=== PATIENT | male | born 1960 | race Caucasian/White ===

== ENCOUNTER → 2017-02-22 | Outpatient (CLI) | payer OTHER | LOC: BMCIMAGING 14:38 | PROVIDERS: ATTEND Podiatrist Foot & Ankle Surgery | DX: M25.871 Other specified joint disorders, right ankle and foot (principal) ==

== ENCOUNTER 2017-12-01 14:27 | Emergency (ER) | payer OTHER ==
[2017-12-01 14:35] VITALS: TEMP 97.9
[2017-12-01 14:43] VITALS: O2SAT 97
--- NOTE | 2017-12-01 14:43 | EDPHY ---
H & P Stated Complaint: HTN and sinus headache , sent from Time Seen by Provider: 12/01/17 14:41 HPI/ROS: HPI: This is the 57-year-old male who presents with Chief Complaint: hypertension Location: Heart Quality: High blood pressure Duration: 3 days Signs and Symptoms: No chest pain, no palpitations, no shortness of breath, no hemoptysis, no lower extremity edema, no fever, no cough Timing: Sudden, intermittent episodes Severity: Moderate Context: Patient has a history of hyperlipidemia on Crestor, AndroGel and followed by Cardiology outpatient HD strong family cardiac history with negative nuclear stress test in January of this year presents with 3 days of head pressure, sinus congestion, dizziness, room spinning when he moves his head in a certain position along with transiently elevated blood pressure readings. He uses a wrist cuff at home to take blood pressure readings throughout the day for the last 3 days. His highest reading was 150/78. Today he went to [facility] and they got a reading of a systolic 180/90 and sent the patient to the emergency room for further evaluation. Patient reports that he limits the amount of caffeine that he uses but has been taking Sudafed for his nasal congestion for the last few days. Does not have a diagnosis of hypertension. Exercises regularly. Nonsmoker. Patient adamantly denies chest pain/shortness of breath/lower extremity edema/recent long distance travel but only came at the urging of of his and the [facility]. reports that he has had increased insomnia and just not feeling well the last 3 days. He runs approximately 20 miles per week. Modifying Factors: None Comment: Chart review shows that January 2016 carotid ultrasound was unremarkable for stenosis. ROS: see HPI Constitutional: No fever, no chills, no weight loss Eyes: No blurred vision Respiratory: No shortness of breath, no cough Cardiovascular: No chest pain Gastrointestinal: No nausea, no vomiting, no diarrhea Genitourinary: No dysuria Extremities: No myalgias Neurologic: No weakness, no numbness Skin: No rashes Hematologic: No bruising, no bleeding MEDICAL/SURGICAL/SOCIAL HISTORY: Medical history: hyperlipidemia, inner ear herpes, diverticulitis Surgical history: foot surgery Social history: . CONSTITUTIONAL: Extremely anxious, physically fit, polite, adult white male, awake and alert, no obvious distress HEENT: Atraumatic and normocephalic, PERRL, EOMI. TM show effusion left greater than right. Tympanic membranes clear. Oropharynx clear, no exudate and moist pink mucosa. Airway patent. No lymphadenopathy. No meningismus. Cardiovascular: Normal S1/S2, regular rate, regular rhythm, without murmur rub or gallop. PULMONARY/CHEST: Symmetrical and nontender. Clear to auscultation bilaterally. Good air movement. No accessory muscle usage. ABDOMEN: Soft, nondistended, nontender, no rebound, no guarding, no peritoneal signs, no masses or organomegaly. No CVAT. EXTREMITIES: 2/2 pulses, strength 5/5, no deformities, no clubbing, no cyanosis or edema. NEUROLOGICAL: no focal neuro deficits. GCS 15. SKIN: Warm and dry, no erythema. no rash. Good capillary refill. Source: Patient, Family () Exam Limitations: No limitations - Personal History Current Tetanus/Diphtheria Vaccine: Yes Current Tetanus Diphtheria and Acellular Pertussis (TDAP): Yes Tetanus Vaccine Date: < 10 years - Medical/Surgical History Hx Asthma: No Hx Chronic Respiratory Disease: No Hx Diabetes: No Hx Cardiac Disease: No Hx Renal Disease: No Hx Cirrhosis: No Hx Alcoholism: No Hx HIV/AIDS: No Hx Splenectomy or Spleen Trauma: No Other PMH: hyperlipedemia. inner ear herpes. divirticulitis. foot surgery - Social History Smoking Status: Never smoked Constitutional: Initial Vital Signs Temperature (C) 36.6 C 12/01/17 14:30 Heart Rate 67 12/01/17 14:30 Respiratory Rate 20 12/01/17 14:30 Blood Pressure 187/120 H 12/01/17 14:30 O2 Sat (%) 100 12/01/17 14:30 O2 Delivery Mode Room Air Allergies/Adverse Reactions: No Known Allergies Allergy (Verified 12/01/17 14:29) Home Medications: Medication Instructions Recorded TESTIM 09/17/10 Budesonide [Rhinocort Allergy] 1 spray NS DAILY #1 spray.pump 12/01/17 Crestor 12/01/17 Fexofenadine HCl [Mary Allergy] 180 mg PO DAILY #12 tablet 12/01/17 LORazepam [Ativan (*)] 1 mg PO Q6 PRN #10 tab 12/01/17 Proair Hfa 12/01/17 Medical Decision Making - Diagnostics EKG Interpretation: 12 lead EKG: Indication: Hypertension Rhythm: Normal sinus rhythm, rate 64 beats per minute [place]: Normal Intervals: Normal QRS: Normal ST segments: Nonspecific changes T-waves: Normal INTERPRETATION: No acute ischemic changes The 12 lead EKG was interpreted by myself and with attending. ED Course/Re-evaluation: EKG, labs, IV medications, oral medications, telemetry ordered Orthostatics unremarkable Given aspirin and IV Ativan 1 mg upon arrival. No prior history of hypertension; suspect transient elevation secondary to anxiety and Sudafed use. EKG shows no acute ischemic changes 1515: Blood pressure noted on telemetry 138/87 No signs of pulmonary embolism/acute coronary syndrome/CVA/congestive heart failure/otitis media/sinusitis This patient was seen under the supervision of my primary supervising physician. I evaluated care for this patient independently. Discussed this patient with Dr. Canales who did not see the patient. Patient's presentation, labs /imaging, treatment and plan of care were discussed with secondary supervising physician. Differential Diagnosis: Chest pain including but not limited to myocardial ischemia, pulmonary embolus, chest wall pain, pleural inflammation and pulmonary infectious causes. Dizziness including but not limited to peripheral and central causes of vertigo , orthostatic causes including dehydration, and blood loss. - Data Points Laboratory Results: Laboratory Results 12/01/17 15:10 12/01/17 15:10 12/01/17 12/01/17 12/01/17 15:10 15:10 15:10 WBC 9.34 10^3/uL 10^3/uL (3.80-9.50) RBC 5.19 10^6/uL 10^6/uL (4.40-6.38) Hgb 16.1 g/dL g/dL (13.7-17.5) Hct 45.5 % % (40.0-51.0) MCV 87.7 fL fL (81.5-99.8) MCH 31.0 pg pg (27.9-34.1) MCHC 35.4 g/dL g/dL (32.4-36.7) RDW 12.8 % % (11.5-15.2) Plt Count 209 10^3/uL 10^3/uL (150-400) MPV 11.0 fL fL (8.7-11.7) Neut % (Auto) 70.7 % % (39.3-74.2) Lymph % (Auto) 23.3 % % (15.0-45.0) [place] % (Auto) 5.0 % % (4.5-13.0) Eos % (Auto) 0.4 % L % (0.6-7.6) Baso % (Auto) 0.4 % % (0.3-1.7) Nucleat RBC Rel Count 0.0 % % (0.0-0.2) Absolute Neuts (auto) 6.59 10^3/uL H 10^3/uL (1.70-6.50) Absolute Lymphs (auto) 2.18 10^3/uL 10^3/uL (1.00-3.00) Absolute Monos (auto) 0.47 10^3/uL 10^3/uL (0.30-0.80) Absolute Eos (auto) 0.04 10^3/uL 10^3/uL (0.03-0.40) Absolute Basos (auto) 0.04 10^3/uL 10^3/uL (0.02-0.10) Absolute Nucleated RBC 0.00 10^3/uL 10^3/uL (0-0.01) Immature Gran % 0.2 % % (0.0-1.1) Immature Gran # 0.02 10^3/uL 10^3/uL (0.00-0.10) D-Dimer < 0.27 ug/mLFEU ug/mLFEU (0.00-0.50) Sodium 140 mEq/L mEq/L (134-144) Potassium 4.2 mEq/L mEq/L (3.5-5.2) Chloride 107 mEq/L mEq/L (97-110) Carbon Dioxide 22 mEq/l mEq/l (22-31) Anion Gap 11 mEq/L mEq/L (8-16) BUN 16 mg/dL mg/dL (7-23) Creatinine 0.8 mg/dL mg/dL (0.7-1.3) Estimated GFR > 60 Glucose 112 mg/dL H mg/dL (70-100) Calcium 10.1 mg/dL mg/dL (8.5-10.4) Troponin I < 0.012 ng/mL ng/mL (0.000-0.034) NT-Pro-B Natriuret Pep 47 pg/mL pg/mL (0-125) Medications Given: Discontinued Medications Aspirin (Aspirin) 324 mg PO EDNOW ONE Stop: 12/01/17 14:59 Last Admin: 12/01/17 15:15 Dose: 324 mg Lorazepam (Ativan Injection) 1 mg IVP EDNOW ONE Stop: 12/01/17 14:59 Last Admin: 12/01/17 15:09 Dose: 1 mg Departure - Departure Disposition: Home, Routine, Self-Care Clinical Impression: Elevated blood pressure reading, Sinus headache Condition: Good Instructions: Acute Headache (ED), Hypertension (ED) Additional Instructions: Please stop using Sudafed and instead start taking Mary and Rhinocort intranasally daily. Continue to eat a low salt diet, exercise regularly, take Lipitor and follow up as needed with cardiology. Please limit stress in your life. Take Ativan 1 mg every 6 hours as needed for anxiety x maximum 3 days. Please go to see her primary care doctor in 5-7 days for repeat examination and continued monitoring. Referrals: Jabari Cardoza MD [Primary Care Provider] - 5-7 days, call for appt. Prescriptions: Budesonide [Rhinocort Allergy] 1 spray NS DAILY #1 spray.pump Fexofenadine HCl [Mary Allergy] 180 mg PO DAILY #12 tablet LORazepam [Ativan (*)] 1 mg PO Q6 PRN #10 tab PRN Reason: Anxiety
--- NOTE | 2017-12-01 14:53 | CPEKG ---
Heart Rate: 64 RR Interval: 938 P-R Interval: 156 QRSD Interval: 96 QT Interval: 416 QTC Interval: 430 P [place]: 34 QRS [place]: 32 T Wave [place]: 42 EKG Severity - ABNORMAL ECG - EKG Impression: SINUS RHYTHM EKG Impression: PROBABLE ANTEROSEPTAL INFARCT, OLD Electronically Signed By: Carolina Canales 01-Dec-2017 15:53:17
[2017-12-01] MEDS ORDERED: ASPIRIN 81 MG CHEWABLE TAB PO ONE (14:58)
[2017-12-01] MEDS ORDERED: LORazepam 2 MG/ML INJ IVP ONE (14:58)
[2017-12-01 15:23] LABS: PLATELET COUNT 209 10^3/uL (150-400)
[2017-12-01 16:11] VITALS: BP 140/89; PULSE 60; RESP 17
== END 2017-12-01 16:30 | disposition home or self-care (01) ==
DX: R03.0 Elevated blood-pressure reading, without diagnosis of hypertension (principal); R51 Headache
CPT/HCPCS: 96374; J2060